=== PATIENT | male | born 1950 | race Caucasian/White ===

== ENCOUNTER → 2019-06-05 | Outpatient (CLI) | payer MEDICARE, OTHER ==
--- NOTE | 2019-06-05 09:54 | KCIC ---
MRI Lumbar Spine without contrast History: Low back pain with radiculopathy, left radiculopathy for 3 years Technique: Multiplanar, multi sequential noncontrast MR imaging was performed of the lumbar spine. Comparison: None Findings: There appears to be transitional anatomy of the lumbar spine. 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 Most inferior fully formed intervertebral disc space is considered L5-S1. Conus terminates at L1-2. There is mild disc desiccation L3-4 through L5-S1 and also at L1-2. There is no significant marrow edema. Lumbar vertebral body stature is overall maintained. Not included on the axial images, there is likely posterior shallow protrusion at T11-12 with mild indentation upon the ventral thecal sac. L1-L2: This level was not included on the axial images. Spinal canal and neural foramina are adequate. There is negligible posterior bulge. L2-L3: Spinal canal and neural foramina are adequate. There is minimal facet degenerative change. L3-L4: Neural foramina and spinal canal are adequate. There is mild buckling of the ligamentum flavum and facet degenerative change. L4-L5: There is mild buckling of the ligamentum flavum and [id number] facet degenerative change. There is minimal disc osteophyte complex and bulge. There is mild neural foramina compromise bilaterally, left greater than right. There is very mild narrowing of the far left lateral recess. L5-S1: There is minimal disc osteophyte complex and shallow bulge. Spinal canal is adequate. There is mild narrowing of the left neural foramen, right neural foramen adequate. There is moderate to severe facet degenerative change greater on the right. S1-2: Spinal canal and neural foramina are adequate. Impression: 1. 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 2. There is no significant lumbar spinal stenosis. 3. There is mild neural foramina compromise bilaterally at L4-5 and on the left at L5-S1. There is no significant lumbar spinal stenosis, very mild narrowing of the far left lateral recess at what is considered L4-5. Electronically signed by: Kobi Recinos MD (06/05/2019 9:51 AM) [id number]
== END | disposition home or self-care (01) ==
LOC: KCIC MRI 09:09
PROVIDERS: ATTEND Family Medicine
DX: M47.26 Other spondylosis with radiculopathy, lumbar region (principal); M48.07 Spinal stenosis, lumbosacral region; M25.78 Osteophyte, vertebrae
CPT/HCPCS: 72148

== ENCOUNTER → 2021-04-07 | Outpatient (CLI) | payer MEDICARE ==
--- NOTE | 2021-04-07 12:24 | KCIC ---
EXAM: Chest, 2 views. HISTORY: Shortness of air. COMPARISON: None. FINDINGS: 2 views of the chest are obtained. There is no infiltrate, pleural effusion or pneumothorax . The heart is normal in size. IMPRESSION: No acute pulmonary finding. Electronically signed by: Adriana Morris MD (04/07/2021 12:22 PM) [id number]
== END ==
LOC: KCIC 11:22
PROVIDERS: ATTEND Family Medicine
DX: R06.02 Shortness of breath (principal); R06.09 Other forms of dyspnea; Z86.16 Personal history of COVID-19
CPT/HCPCS: 71046